=== PATIENT | female | born 1965 | race Caucasian/White ===

== ENCOUNTER → 2016-08-22 | Outpatient (CLI) | payer BC ==
[~2016-08-22] MED LIST: AMBIEN10 MG PO; BACTROBAN NASAL1 G1 BOTH NARES; BUPROPION HCL150 M2 PO; CYMBALTA60 MG PO; FERROUS SULFAT325 MG PO; LAMICTAL150 M1 PO; METHOCARBAMOL750 MG PO; PROTONIX40 MG PO; VOLTAREN 1% GE100 GM TP; VOLTAREN75 MG PO
== END | disposition home or self-care (01) ==
LOC: CDC 10:08
DX: Z01.810 Encounter for preprocedural cardiovascular examination (principal)
CPT/HCPCS: 93000

== ENCOUNTER 2016-08-29 05:14 | Inpatient (IN) | payer BC ==
[~2016-08-29] VITALS: Ht 167.6 cm; Wt 80.7 kg
[2016-08-29] MEDS ORDERED: PRAVASTATIN SOD10 MG PO (06:10)
[2016-08-29 06:11] VITALS: BP 137/69
[2016-08-29 10:30] VITALS: BP 130/64
[2016-08-29 12:20] VITALS: BP 120/79
[2016-08-29 14:17] VITALS: BP 120/68
[2016-08-29 16:01] VITALS: BP 113/54
[2016-08-29 20:03] VITALS: BP 113/54
[2016-08-30 00:24] VITALS: BP 113/56
[2016-08-30 04:30] VITALS: BP 114/58
[2016-08-30 06:37] LABS: ANION GAP 9 MEQ/L (2-14); CHLORIDE 106 MEQ/L (99-109); GFR ESTIMATE (CALCULATED) > 59 mL/min/; GLUCOSE 113 mg/dL (70-99); POTASSIUM 4.1 MEQ/L (3.7-5.4); SAMPLE HEMOLYSIS CHECK 0; SAMPLE ICTERIC CHECK 0; SAMPLE LIPEMIA CHECK 0; SODIUM 140 MEQ/L (136-147); UREA NITROGEN (BUN) 13 mg/dL (9-23)
[2016-08-30 08:18] VITALS: BP 118/59
[2016-08-30 08:18] LABS: HEMATOCRIT 37.1 % (36.0-46.0); MCV 90.5 FL (83-99)
[2016-08-30 12:00] VITALS: BP 112/56
[2016-08-30 16:10] VITALS: BP 112/55
[2016-08-30 20:27] VITALS: BP 116/57
[2016-08-31 00:30] VITALS: BP 119/57
[2016-08-31 04:00] VITALS: BP 110/51
[2016-08-31 05:27] LABS: HEMATOCRIT 33.3 % (36.0-46.0); MCV 88.3 FL (83-99)
[2016-08-31 08:00] VITALS: BP 104/57
[2016-08-31] MEDS ORDERED: TYLENOL REGULA325 MG PO (10:19)
[2016-08-31] MEDS ORDERED: DOCUSATE SODIU100 MG PO (10:19)
[2016-08-31] MEDS ORDERED: OXYCONTIN10 MG PO (10:20)
[2016-08-31] MEDS ORDERED: OXYCODONE HCL5 MG PO (10:20)
[2016-08-31] MEDS ORDERED: XARELTO10 MG PO (10:20)
[2016-08-31 11:58] VITALS: BP 113/55
[2016-08-31 15:22] VITALS: BP 117/59
== END 2016-08-31 16:00 | DRG 470 ==
LOC: 2SOUTH 05:14 → 3WEST 10:11 → 2SOUTH 15:28 → 3WEST 08-31 16:00
PROVIDERS: Orthopaedic Surgery; Physician Assistant
PROC: 0SRC0J9 Replacement of Right Knee Joint with Synthetic Substitute, Cemented, Open Approach (ICD-10-PCS; principal; 2016-08-29)
DX: M17.11 Unilateral primary osteoarthritis, right knee (principal); F32.9 Major depressive disorder, single episode, unspecified; Z87.891 Personal history of nicotine dependence; E78.00 Pure hypercholesterolemia, unspecified; F41.9 Anxiety disorder, unspecified; M21.161 Varus deformity, not elsewhere classified, right knee; Z22.322 Carrier or suspected carrier of Methicillin resistant Staphylococcus aureus
CPT/HCPCS: 80048; 85014; 85018; C1713; J0131; J0690; J1170; J1885; J2250; J2405; J3370; J7050; J7120; L1820; S0020